=== PATIENT | female | born 1960 | race Caucasian/White ===

== ENCOUNTER → 2021-08-30 10:01 | Outpatient (CLI) | payer OTHER, SELFPAY ==
--- NOTE | ~2021-08-30 | DEXA_ITS ---
Bone Density Report Name: DOUG ODONNELL Age: 61 Sex: Female Ethnicity: White Date of : 1960 Indication: postmenopausal; screening for osteoporosis; Referring Provider: CHRIS, ATA Study: Bone densitometry was performed. Exam Date: August 30, 2021 Accession number: [id number] Bone Density: Region BMD T-score Z-score Classification AP Spine (L1-L4) 1.147 0.9 2.3 Normal Femoral Neck (Left) 0.835 -0.1 1.1 Normal Total Hip (Left) 1.031 0.7 1.6 Normal Femoral Neck (Right) 0.924 0.7 1.9 Normal Total Hip (Right) 1.057 0.9 1.8 Normal Total Hip Mean 1.044 0.8 1.7 Normal World Health Organization criteria for BMD impression classify patients as: Normal (T-score at or above -1.0), Osteopenia (T-score between -1.0 and -2.5), or Osteoporosis (T-score at or below -2.5). 10-year Fracture Risk: FRAX not reported because: All T-scores for Spine Total, Hip Total, Femoral Neck at or above -1.0 Clinical Information Provided by Patient: Has used the following medications: Vitamin D Patient maximum height was 67.75 Menopause Age: 54 Drinks caffeinated beverages Onset of menses at age 14 Number of children 2 Impression: The patient has normal bone mass. Discussion: BONE DENSITY IS ABOVE THE MINIMUM DESIRABLE LEVEL AT ALL SKELETAL SITES TESTED. This patient?s bone mineral density is above the minimum desirable level (T-score -1.0 or better) at all sites measured. The patient should follow a healthful lifestyle (good nutrition with adequate calcium and vitamin D, and appropriate weight-bearing exercise). Follow-Up: Consider repeating this study in 5 years or sooner if there is some new clinical indication. Reported by: [facility] on 08/30/2021 10:24:00 AM. Reviewed, dictated and finalized at location AJerri OLIVA
== END ==
PROVIDERS: Visit Provider Nurse Practitioner
DX: Z78.0 Asymptomatic menopausal state (principal)
CPT/HCPCS: 77080

== ENCOUNTER 2024-03-11 13:58 | Outpatient (CLI) | payer OTHER, SELFPAY ==
--- NOTE | ~2024-03-11 | XR_ITS ---
EXAMINATION: XR chest 2V 03/11/2024 14:12 INDICATION: Pneumonia PROCEDURE: 2 view chest COMPARISON: No prior studies for comparison. FINDINGS: The lungs are clear. The cardiomediastinal silhouette is within normal limits. There are no pleural effusions. There is no pneumothorax suspected. IMPRESSION: 1: NO ACUTE CARDIOPULMONARY DISEASE. Reviewed, dictated and finalized at location B.
== END 2024-03-11 13:59 | disposition home or self-care (01) ==
PROVIDERS: PCP Family Medicine; Visit Provider Family Medicine
DX: J18.9 Pneumonia, unspecified organism (principal)
CPT/HCPCS: 71046

== ENCOUNTER 2024-06-01 07:02 | Day surgery (SDC) | payer OTHER, SELFPAY ==
[2024-04-19 10:31] VITALS: BMI 38.5
--- NOTE | 2024-06-01 06:42 | P.PNAN_ITS ---
Anes - Initial Pre Proc Eval Procedure: Operation Date: 06/01/24 09:30 Proposed Procedures p Screening Colonoscopy - Calixto Joseph MD Date/Time: 06/01/24 06:42 Surgeon: Calixto Joseph MD Pre Op Diagnosis: Neoplasm Screening Patient Data Age: 63 Gender: F Height: 1.7 m Weight: 109 kg Allergies Allergy/AdvReac Type Severity Reaction Status Date / Time No Known Allergies Allergy Verified 05/13/24 10:39 Home Medications Medication Instructions Recorded Confirmed Type bupropion HCl 150 mg 24 hr tablet, 150 mg PO QAM #90 tabs 04/15/24 05/13/24 Rx extended release sodium,potassium,mag sulfates 17.5 See Rx Instructions PO .COMPLEX 04/19/24 05/13/24 Rx gram-3.13 gram-1.6 gram oral soln #354 mL (Suprep Bowel Prep Kit) magnesium 1 tablet PO DIRECTED 05/13/24 05/13/24 History Patient hx anesthesia problems: none Family hx anesthesia problems: none Results Review: All pre-operative results and documents have been reviewed as part of the pre-operative evaluation. [facility] Past Medical History Medical History (Updated 06/01/24 @ 06:43 by Mayito Vásquez DO) Anxiety and depression MVP (mitral valve prolapse) Family History Family History (Updated 04/18/24 @ 09:00 by Marie Hernandez CMA) Father Depression Heart disease Hypertension Grandparent Breast cancer Mother Breast cancer Social History Social History (Updated 04/18/24 @ 08:59 by Marie Hernandez CMA) Smoking status: Never smoker Substance use type: does not use Lack of Transportation: No Lack of Food: Never True Current Housing: I Have Housing Concerned About Future Housing: No Difficulty Paying Gas/Electric Bills: No Difficulty Paying for Meds: No Currently Unemployed: No Education: Bachelor's Degree Difficulty w/ Childcare or Family Care: No Living arrangements: with family Anes - Eval Final PreProcedure Day of Procedure 06/01/24 06:42 Patient weight: obese Heart: regular rate and rhythm Lungs: clear to auscultation Airway: Mallampati scale class II Neurological: alert and oriented Last oral intake: >/= 8 hours ASA classification: II Emergent: no Anesthetic plan: proceed Anesthesia type and monitoring: general GIVS and standard monitoring Results Review: All pre-operative results and documents have been reviewed as part of the pre- operative evaluation. Informed Consent: The patient's anesthetic plan and its attendant risks and benefits were discussed with the patient/family/POA. Questions were solicited and answers provided to the satisfaction of the patient/family/POA.
--- NOTE | 2024-06-01 08:27 | PM.HPGS ---
History of Present Illness History of Present Illness Consent: Risks, benefits, and alternatives have been discussed and questions answered. Patient agrees to proceed with procedure. Chief complaint: Neoplasm Screening Narrative: Emilia Saavedra is a 63 year old female presents for screening colonoscopy. Patient's current weight appetite is are normal. She denies abdominal pain. Patient has had no bleeding. Family history is significant that a sister had colon polyps. Patient's previous colonoscopy in 2016 was unremarkable. Review of Systems Review of Systems: All systems reviewed & are unremarkable except as noted in HPI and below PMFSH Past Medical History Medical History (Updated 06/01/24 @ 06:43 by Mayito Vásquez, ) Anxiety and depression MVP (mitral valve prolapse) Family History Family History (Updated 04/18/24 @ 09:[address] [facility]) Father Depression Heart disease Hypertension Grandparent Breast cancer Mother Breast cancer Social History Social History (Updated 04/18/24 @ 08:[address] [facility]) Smoking status: Never smoker Substance use type: does not use Lack of Transportation: No Lack of Food: Never True Current Housing: I Have Housing Concerned About Future Housing: No Difficulty Paying Gas/Electric Bills: No Difficulty Paying for Meds: No Currently Unemployed: No Education: Bachelor's Degree Difficulty w/ Childcare or Family Care: No Living arrangements: with family Meds Home Medications and Allergies Home Medications Medication Instructions Recorded Confirmed Type bupropion HCl 150 mg 24 hr tablet, 150 mg PO QAM #90 tabs 04/15/24 05/13/24 Rx extended release sodium,potassium,mag sulfates 17.5 See Rx Instructions PO .COMPLEX 04/19/24 05/13/24 Rx gram-3.13 gram-1.6 gram oral soln #354 mL (Suprep Bowel Prep Kit) magnesium 1 tablet PO DIRECTED 05/13/24 05/13/24 History Allergies Allergy/AdvReac Type Severity Reaction Status Date / Time No Known Allergies Allergy Verified 05/13/24 10:39 Exam Narrative: Physical exam reveals patient stable. HEENT exam is unremarkable. Patient is anicteric. Lungs are clear to auscultation and to percussion is without murmur or extra sounds. Abdomen bowel sounds are present soft nontender with no organomegaly. Digital external rectal exam normal. Assessment and Plan Assessment and plan (1) Screening for colon cancer: Code(s): Z12.11 - Encounter for screening for malignant neoplasm of colon Status: Acute Assessment and Plan: Presents today for neoplasia screening colonoscopy. Further recommendations may be given after endoscopy.
[2024-06-01 08:36] VITALS: BP 150/89; PULSE 77; RESP 18; TEMP 36.6; O2SAT 99
[2024-06-01] MEDS: LACTATED RINGERS 1,000 ML 150 ML IV CONT (08:38)
[2024-06-01 09:07] VITALS: BP 124/78; PULSE 83; RESP 16; O2SAT 97
[2024-06-01 09:17] VITALS: BP 123/63; PULSE 78; RESP 14; O2SAT 99
[2024-06-01 09:27] VITALS: BP 133/76; PULSE 77; RESP 14; O2SAT 100
--- NOTE | 2024-06-01 12:30 | WPDANESPN ---
Anes - Prog Note Post-Op Date/Time: 06/01/24 12:30 Cardiovascular status: normal Respiratory status: normal Airway patency: baseline Mental status: baseline Post-Op hydration status: normal Vital Signs: Last Vital Signs Temp 36.6 C 06/01/24 08:36 Pulse 77 06/01/24 09:27 Resp 14 06/01/24 09:27 BP 133/76 06/01/24 09:27 Pulse Ox 100 06/01/24 09:27 O2 Del Method Room Air 06/01/24 09:27 Pain Score (VAS): 0 I/O: Intake & Output 05/31/24 06/01/24 06/01/24 23:59 07:59 15:59 Intake Total 0 Balance 0 Post-procedural complaints: none Patient Feedback: Patient satisfied with anesthetic care. Other Findings: Patient vital signs back to baseline. Patient denies nausea and vomiting. Patient's pain under control. Patient OK for discharge.
== END 2024-06-01 09:43 | disposition home or self-care (01) ==
PROVIDERS: PCP Family Medicine; Visit Provider Internal Medicine Gastroenterology
PROC: 0DJD8ZZ Inspection of Lower Intestinal Tract, Via Natural or Artificial Opening Endoscopic (ICD-10-PCS; CPT 45378; principal; 2024-06-01 09:30)
DX: Z12.11 Encounter for screening for malignant neoplasm of colon (principal); D12.2 Benign neoplasm of ascending colon; K64.8 Other hemorrhoids
CPT/HCPCS: 45385

== ENCOUNTER 2024-06-01 10:55 | Outpatient (NON) | payer OTHER, SELFPAY | END 2024-06-01 10:56 | disposition home or self-care (01) | LOC: ANHLAB 06-02 10:56 | PROVIDERS: PCP Family Medicine; Visit Provider Internal Medicine Gastroenterology | DX: K63.5 Polyp of colon (principal) | CPT/HCPCS: 88305 ==